=== PATIENT | female | born 1995 | race Caucasian/White ===

== ENCOUNTER 2023-01-18 10:09 | Emergency (ER) | payer OTHER ==
[~2023-01-18] VITALS: Ht 162.6 cm; Wt 59.0 kg
[2023-01-18 10:17] VITALS: BP 112/62; TEMP 98.4; O2SAT 100
== END 2023-01-18 11:12 | disposition home or self-care (01) ==
LOC: ER 10:09
DX: R04.0 Epistaxis (principal)